=== PATIENT | male | born 1945 ===

== ENCOUNTER → 2019-10-16 10:31 | Outpatient (CLI) | payer OTHER ==
[~2019-10-16 10:31] MED LIST: AVAPRO300 MG PO; AZOR 5-20 MG T1 EACH PO; KETO10TA2 PO; NORVASC5 MG PO; PERCOCET 5-3251 EACH PO; RECTICARE30 GM TOP
== END | disposition home or self-care (01) ==
LOC: LAB 10:31
DX: E78.2 Mixed hyperlipidemia (principal); I11.9 Hypertensive heart disease without heart failure

== ENCOUNTER 2019-10-21 06:30 | Day surgery (SDC) | payer OTHER ==
[~2019-10-21 06:30] MED LIST changes: -KETO10TA2 PO; -PERCOCET 5-3251 EACH PO; -RECTICARE30 GM TOP
[2019-10-21] MEDS ORDERED: KETO10TA2 PO (10:14)
[2019-10-21] MEDS ORDERED: PERCOCET 5-3251 EACH PO (10:14)
[2019-10-21] MEDS ORDERED: RECTICARE30 GM TOP (10:15)
== END 2019-10-21 15:30 | disposition home or self-care (01) ==
LOC: CIR.AMB 06:30 → ADM 10:45 → CIR.AMB 15:30
DX: K64.4 Residual hemorrhoidal skin tags (principal)

== ENCOUNTER 2020-02-07 08:12 | Outpatient (CLI) | payer OTHER ==
[~2020-02-07 08:12] MED LIST changes: +KETO10TA2 PO; +PERCOCET 5-3251 EACH PO; +RECTICARE30 GM TOP
== END 2020-02-07 08:14 | disposition home or self-care (01) ==
LOC: MRI 08:12
DX: G51.0 Bell's palsy (principal)
CPT/HCPCS: 70553; A9575; 70552

== ENCOUNTER 2020-02-07 08:25 | Outpatient (CLI) | payer OTHER | END 2020-02-07 08:33 | disposition home or self-care (01) | LOC: LAB 08:25 | DX: G51.0 Bell's palsy (principal) ==